=== PATIENT | female | born 1975 | race Hispanic/Latino ===

== ENCOUNTER 2018-10-03 20:06 | Emergency (ER) | payer SELFPAY ==
[2018-10-03] MEDS ORDERED: METHYLPREDNISOLONE 125 MG INJ ONE (20:57)
[2018-10-03] MEDS ORDERED: DIPHENHYDRAMINE 25 MG TAB/CAP ONE (20:57)
--- NOTE | 2018-10-03 21:01 | ER ---
Nurse's Notes [facility] Name: Yocasta Canales Age: 42 yrs Sex: Female : 1975 Arrival Date: 10/03/2018 Time: 20:11 Bed 5 Private MD: Zac oCta Diagnosis: Allergic contact dermatitis due to plants, except food Presentation: 10/03 20:18 Presenting complaint: Patient states: She was outside working on yard yesterday and lp1 came in contact with poison oak; Swelling, redness, burning to general body, more severe on face since this morning; Took Benadryl tablet at 1800. Transition of care: patient was not received from another setting of care. Onset of symptoms was October 03, 2018. Risk Assessment: Do you want to hurt yourself or someone else? Patient reports no desire to harm self or others. Initial Sepsis Screen: Does the patient meet any 2 criteria? No. Patient's initial sepsis screen is negative. Does the patient have a suspected source of infection? No. Patient's initial sepsis screen is negative. Care prior to arrival: None. 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 - Social history:: Smoking status: Patient/guardian denies using tobacco. - Ebola Screening: : No symptoms or risks identified at this time. Screenin:23 Abuse screen: Denies threats or abuse. Denies injuries from another. Nutritional lp1 screening: No deficits noted. Tuberculosis screening: No symptoms or risk factors identified. Fall Risk None identified. Assessment: 20:22 General: Appears in no apparent distress. comfortable, Behavior is calm, cooperative, lp1 appropriate for age. Pain: Denies pain. Neuro: Level of Consciousness is awake, alert, obeys commands. Cardiovascular: Patient's skin is warm and dry. Respiratory: Respiratory effort is even, unlabored. GI: No signs and/or symptoms were reported involving the gastrointestinal system. : No signs and/or symptoms were reported regarding the genitourinary system. EENT: No signs and/or symptoms were reported regarding the EENT system. Derm: Skin is intact, Rash noted that is itchy, red, raised, on face. Musculoskeletal: No deficits noted. 21:20 Reassessment: Patient and/or family updated on plan of care and expected duration. Pain ea level reassessed. Discharge instruction given to patient, verbalized the understanding of instruction . No s/s of pain or discomfort noted at this time. Vital Signs: 20:20 BP 118 / 55; Pulse 64; Resp 18; Temp 98.7(O); Pulse Ox 100% on R/A; Weight 80.74 kg; lp1 Height 5 ft. 1 in. (154.94 cm); Pain 0/10; 20:20 Body Mass Index 33.63 (80.74 kg, 154.94 cm) lp1 ED Course: 20:11 Patient arrived in ED. es 20:11 Zac Cota MD is Private Physician. es 20:13 Hayden Alvarado PA is PHCP. jr8 20:13 Alejandro Huff MD is Attending Physician. jr8 20:18 Delores Alejandre, NAN is Primary Nurse. lp1 20:20 Triage completed. lp1 20:21 Arm band placed on right wrist. lp1 20:24 Patient has correct armband on for positive identification. lp1 20:59 Zac Cota MD is Referral Physician. jr8 21:20 No provider procedures requiring assistance completed. Patient did not have IV access ea during this emergency room visit. Administered Medications: 20:41 Drug: SOLU-Medrol 125 mg Route: IM; Site: right deltoid; lp1 21:19 Follow up: Response: No adverse reaction lp1 20:41 Drug: Benadryl 25 mg Route: PO; lp1 21:20 Follow up: Response: No adverse reaction lp1 Outcome: 21:00 Discharge ordered by . jr8 21:20 Discharged to home ambulatory, with family. ea 21:20 Condition: good 21:20 Discharge instructions given to patient, Instructed on discharge instructions, follow up and referral plans. medication usage, Demonstrated understanding of instructions, follow-up care, medications, Prescriptions given X 1. 21:23 Patient left the ED. ea Signatures: Radha Vaughn Laura, RN RN lp1 Hayden Alvarado PA PA jr8 Phuong Naik RN RN ea
--- NOTE | 2018-10-03 21:01 | EDPHYS ---
Physician Documentation [facility] Name: Yocasta Canales Age: 42 yrs Sex: Female : 1975 Arrival Date: 10/03/2018 Time: 20:11 Bed 5 Private MD: Zac Cota ED Physician Alejandro Huff HPI: 10/03 20:57 This 42 yrs old Female presents to ER via Ambulatory with complaints of Facial jr8 Swelling. 20:57 The patient's rash thought to be caused by Contact allergy. The rash is located on the jr8 face, right arm and left arm. The rash can be described as erythematous, vesicular. Onset: The symptoms/episode began/occurred acutely, today. Associated signs and symptoms: Pertinent positives: itching. Severity of symptoms: At their worst the symptoms were moderate in the emergency department the symptoms are unchanged. Treatment given at home: Benadryl. The patient has not experienced similar symptoms in the past. The patient has not recently seen a physician. Stated that she was cleaning plant beds out. A while after started to have rash appear and now with swelling to face. 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 - Social history:: Smoking status: Patient/guardian denies using tobacco. - Ebola Screening: : No symptoms or risks identified at this time. ROS: 20:57 Eyes: Negative for injury, pain, redness, and discharge, ENT: Negative for injury, jr8 pain, and discharge, Neck: Negative for injury, pain, and swelling, Cardiovascular: Negative for chest pain, palpitations, and edema, Respiratory: Negative for shortness of breath, cough, wheezing, and pleuritic chest pain, Abdomen/GI: Negative for abdominal pain, nausea, vomiting, diarrhea, and constipation, Back: Negative for injury and pain, MS/Extremity: Negative for injury and deformity, Neuro: Negative for headache, weakness, numbness, tingling, and seizure. 20:57 Skin: Positive for rash, swelling. Exam: 20:57 Eyes: Pupils equal round and reactive to light, extra-ocular motions intact. Lids and jr8 lashes normal. Conjunctiva and sclera are non-icteric and not injected. Cornea within normal limits. Periorbital areas with no swelling, redness, or edema. ENT: Nares patent. No nasal discharge, no septal abnormalities noted. Tympanic membranes are normal and external auditory canals are clear. Oropharynx with no redness, swelling, or masses, exudates, or evidence of obstruction, uvula midline. Mucous membranes moist. Neck: Trachea midline, no thyromegaly or masses palpated, and no cervical lymphadenopathy. Supple, full range of motion without nuchal rigidity, or vertebral point tenderness. No Meningismus. Cardiovascular: Regular rate and rhythm with a normal S1 and S2. No gallops, murmurs, or rubs. Normal PMI, no JVD. No pulse deficits. Respiratory: Lungs have equal breath sounds bilaterally, clear to auscultation and percussion. No rales, rhonchi or wheezes noted. No increased work of breathing, no retractions or nasal flaring. Abdomen/GI: Soft, non-tender, with normal bowel sounds. No distension or tympany. No guarding or rebound. No evidence of tenderness throughout. Back: No spinal tenderness. No costovertebral tenderness. Full range of motion. MS/ Extremity: Pulses equal, no cyanosis. Neurovascular intact. Full, normal range of motion. Neuro: Awake and alert, GCS 15, oriented to person, place, time, and situation. Cranial nerves II-XII grossly intact. Motor strength 5/5 in all extremities. Sensory grossly intact. Cerebellar exam normal. Normal gait. 20:57 Head/face: Noted is swelling, that is mild, of the left cheek and left eye. 20:57 Skin: rash a mild rash is noted, rash can be described as erythematous, vesicular, contact dermatitis, on the face, right arm and left arm. Vital Signs: 20:20 BP 118 / 55; Pulse 64; Resp 18; Temp 98.7(O); Pulse Ox 100% on R/A; Weight 80.74 kg; lp1 Height 5 ft. 1 in. (154.94 cm); Pain 0/10; 20:20 Body Mass Index 33.63 (80.74 kg, 154.94 cm) lp1 MDM: 20:13 Patient medically screened. jr8 20:59 Data reviewed: vital signs, nurses notes, and as a result, I will discharge patient. jr8 Data interpreted: Pulse oximetry: on room air is 100 %. Interpretation: normal. Counseling: I had a detailed discussion with the patient and/or guardian regarding: the historical points, exam findings, and any diagnostic results supporting the discharge/admit diagnosis, the need for outpatient follow up, a family practitioner, to return to the emergency department if symptoms worsen or persist or if there are any questions or concerns that arise at home. Response to treatment: the patient's symptoms have mildly improved after treatment. Administered Medications: 20:41 Drug: SOLU-Medrol 125 mg Route: IM; Site: right deltoid; lp1 21:19 Follow up: Response: No adverse reaction lp1 20:41 Drug: Benadryl 25 mg Route: PO; lp1 21:20 Follow up: Response: No adverse reaction lp1 Disposition: 10/03/18 21:00 Discharged to Home. Impression: Allergic contact dermatitis due to plants, except food. - Condition is Stable. - Discharge Instructions: Contact Dermatitis, Poison Alley Dermatitis. - Prescriptions for Prednisone 20 mg Oral Tablet - take 3 tablets by ORAL route once daily for 4 days then two tabs once daily for 3 days, then one tab once daily for 3 days; 21 tablet. - Medication Reconciliation Form, Thank You Letter, Antibiotic Education, Prescription Opioid Use form. - Follow up: Zac Cota MD; When: 5 - 6 days; Reason: Recheck today's complaints, Continuance of care, Re-evaluation by your physician. - Problem is new. - Symptoms have improved. Addendum: 10/09/2018 12:42 Co-signature as Attending Physician, Alejandro Huff MD I agree with the assessment and c fierro plan of care. Signatures: Alejandro Huff MD MD cha Pena, Laura, RN RN lp1 Hayden Alvarado PA PA jr8 Phuong Naik RN RN ea Corrections: (The following items were deleted from the chart) 10/03 21:23 21:00 10/03/2018 21:00 Discharged to Home. Impression: Allergic contact dermatitis due ea to plants, except food. Condition is Stable. Forms are Medication Reconciliation Form, Thank You Letter, Antibiotic Education, Prescription Opioid Use. Follow up: Zac Cota; When: 5 - 6 days; Reason: Recheck today's complaints, Continuance of care, Re-evaluation by your physician. Problem is new. Symptoms have improved. jr8
== END 2018-10-03 21:23 | disposition home or self-care (01) ==
LOC: ER 20:06
DX: L23.7 Allergic contact dermatitis due to plants, except food (principal)
CPT/HCPCS: 96372; 99283; J2930